=== PATIENT | female | born 1990 | race Caucasian/White ===

== ENCOUNTER → 2016-04-14 | Outpatient (CLI) | payer BC ==
[2016-04-14 18:25] VITALS: BP 119/81
== END ==
LOC: MHUC 17:18
PROVIDERS: ATTEND Physician Assistant Medical
DX: J01.10 Acute frontal sinusitis, unspecified (principal); H10.32 Unspecified acute conjunctivitis, left eye; Z3A.37 37 weeks gestation of pregnancy
CPT/HCPCS: 99213

== ENCOUNTER 2016-06-22 19:39 | Emergency (ER) | payer BC ==
[~2016-06-22] VITALS: Ht 160 cm; Wt 81.5 kg
[~2016-06-22 19:39] MED LIST: AMOX-358 PO; NITR100C3 PO; PLTR10OP OS; PNV1TABL80 PO
--- OUTSIDE RECORDS SUMMARY | 2016-06-22 19:43 | XMS REPORT | Continuity of Care Document ---
Author Author [facility] Organization [facility] Address Unknown Phone Unavailable Support Name Relationship Address Phone ANDREW SANTOYO MD Caregiver [address] [place] [address] [address] [place] [address] Unavailable ANDREW SANTOYO MD Caregiver [address] [place] [address] [place] [address] Unavailable OTRI ABRAHAM Next Of Kin [address] [place] [address] Insurance Providers Guarantor Rober Nevarez Address [address] [place] [address] Email [email or web address] Policy Number [id number] Subscriber's Name Pavel Nevarez Relationship 01 Spouse Group Number [id number] Advance Directives Directive Response Recorded Date/Time Ordered Resuscitation Status Full Code 04/21/16 6:41am Resuscitation Documents on File No 04/21/16 8:01am DPOA for Healthcare Only No 04/21/16 8:01am Living Will No 04/21/16 8:01am Problems No problem information available. Medications Current Home Medications Medication Dose Units Route Directions Days Qty Instructions Start Date Amoxicillin/Potassium Clav (Augmentin 875-125 Tablet) 1 Each Tablet 1 Tab Oral Twice A Day TAKE WITH MEALS 04/21/16 Hydrocodone/Acetaminophen ([place] 5-325 Tablet) 5-325 Tablet 1-2 Tab Oral Every 4 Hours as needed for Pain 20 Tablet 04/24/16 Ibuprofen 800 Mg Tablet 800 Mg Oral Every 8 Hours as needed for Pain 1 Tablet 04/24/16 Pnv95/Ferrous Fumarate/Fa ( Tablet) 1 Each Tablet 1 Tab Oral Daily 04/05/16 Past Home Medications Medication Directions Ordered Status Acetaminophen (Tylenol Extra Strength) 500 Mg Tablet, 1-2 Tab Oral Every 6 Hours as needed for Pain/Fever 04/05/16 Discontinued Docosahexanoic Acid (Dha) 100 Mg Capsule, 04/05/16 Discontinued Folic Acid 0.4 Mg Tablet, 1 Tab Oral Daily 04/21/16 Discontinued Maria Dolores Root 550 Mg Capsule, 04/05/16 Discontinued Social History Social History Problem Response Recorded Date/Time Onset Date Status Reason for Hospitalization 04/24/2016 1:14pm Not Applicable Not Applicable Hx Substance Use No 04/21/2016 8:01am Not Applicable Not Applicable Has the pt used tobacco in the last 12 months No 04/21/2016 8:01am Not Applicable Not Applicable Query Response Start Date Stop Date Smoking Status Never smoker Hospital Discharge Instructions Instructions: Care Instructions: Reason for Hospitalization: I was in the hospital because (patient own words): to have babies Discharge Diet: regular Discharge Activity: per instruction sheet Follow Up Appointments: Call for or Tue appt. Pending Lab / Results: No Pending Lab Patient Instructions: see discharge teaching Wound/Incision Care: per instruction sheet, discussed vacuum Pain Scale Utilized to Educate Patient: 0-10 Pain Scale Pain Management/Treatment: per instruction sheet Expected Signs/Symptoms: per instruction sheet Notify Physician If: per instruction sheet During Business Hours:: Please call the physician's office at [phone] After Business Hours:: Please call [phone] and have the blower operator page the physician. Condition at time of discharge: Good Plan of Care Discharge Date 04/24/16 2:30pm Disposition 01 DISCHARGED HOME, SELF-CARE Instructions/Education Provided [facility] Delivery Prescriptions See Medication Section Care Plan and Goals See Discharge Instructions Section Functional Status Query Response Date Recorded Mobility Status Ambulatory April 24, 2016 1:14pm Assistive Devices None April 24, 2016 1:14pm Activity Limitations None April 24, 2016 1:14pm Feeding Ability Independent April 24, 2016 1:14pm Toileting Ability Independent April 24, 2016 1:14pm Grooming Ability Independent April 24, 2016 1:14pm Dressing Ability Independent April 24, 2016 1:14pm Driving Ability Independent April 24, 2016 1:14pm Housework Ability Independent April 24, 2016 1:14pm Meal Preparation Ability Independent April 24, 2016 1:14pm Stair Climbing Ability Independent April 24, 2016 1:14pm Ability to complete ADL's impeded by No change April 24, 2016 1:14pm Cognitive/Perceptual Impairments None April 24, 2016 1:14pm Preferred Method of Learning Video/TV April 24, 2016 9:59am Allergies, Adverse Reactions, Alerts No known allergies. Immunizations Query Response on File Recorded Date/Time Influenza Vaccine Hx 11/24/15 04/21/16 8:01am Tdap Vaccine Hx 03/08/16 04/21/16 8:01am Vital Signs Acute Vital Signs Vital Response Date/Time Temperature (Fahrenheit) 97.7 deg F (96.8 - 99.1) 04/24/2016 8:10am Temperature (Calculated Celsius) 36.18860 degrees C (36.0 - 37.3) 04/24/2016 8:10am Pulse Rate (adult) 90 bpm (60 - 100) 04/24/2016 8:10am Respiratory Rate 16 breaths/min (10 - 20) 04/24/2016 8:10am O2 Sat by Pulse Oximetry 97 % (90 - 100) 04/23/2016 10:16pm Oxygen Delivery Method Room Air 04/24/2016 8:10am Oxygen Flow Rate 2.00 L/min 04/21/2016 4:19pm Blood Pressure 119/76 mm Hg 04/24/2016 8:10am Blood Pressure Source Automatic Cuff 04/24/2016 8:10am Height (Feet) 5 feet 04/21/2016 8:01am Height (Inches) 3.00 inches 04/21/2016 8:01am Weight (Kilograms) 101.800 kg 04/21/2016 8:01am Height 5 ft 3 in 04/05/2016 2:14pm Weight 224.43 lb 04/21/2016 8:01am Body Mass Index 39.0 kg/m^2 04/21/2016 8:01am Results Laboratory Results Test Name Result Units Flags Reference Collection Date/Time Result Date/ Time Comments White Blood Count 17.6 T/MM3 H 4.5-11.0 04/24/2016 4:43am 04/24/2016 5: 53am Red Blood Count 3.15 M/MM3 L 4.00-5.20 04/24/2016 4:43am 04/24/2016 5: 53am Hemoglobin 9.3 GM/DL L 12-16 04/24/2016 4:43am 04/24/2016 5:53am Hematocrit 27.6 % D L 36-46 04/24/2016 4:43am 04/24/2016 5:53am Mean Corpuscular Volume 87.6 UM3 80-100 04/24/2016 4:43am 04/24/2016 5: 53am Mean Corpuscular Hemoglobin 29.5 UUG 26-34 04/24/2016 4:43am 2016 5:53am Mean Corpuscular Hemoglobin Concent 33.7 GM/DL 31-37 04/24/2016 4:43am 04/24/2016 5:53am RDW Standard Deviation 38.5 FL 36.9-50.2 04/24/2016 4:43am 04/24/2016 5 :53am Platelet Count 197 T/MM3 D 130-400 04/24/2016 4:43am 04/24/2016 5:53am Mean Platelet Volume 11.8 UM3 9.4-12.4 04/24/2016 4:43am 04/24/2016 5: 53am Neutrophils % (Manual) 70.0 % H 33-66 04/22/2016 5:45am 04/22/2016 6: 46am Band Neutrophils % 3.0 % 0-6 04/22/2016 5:45am 04/22/2016 6:46am Lymphocytes % (Manual) 21.0 % L 23-45 04/22/2016 5:45am 04/22/2016 6: 46am Monocytes % (Manual) 4.0 % 0-9.0 04/22/2016 5:45am 04/22/2016 6:46am Basophils % (Manual) 2.0 % 0-2 04/22/2016 5:45am 04/22/2016 6:46am Reactive Lymphocytes % 1.0 % H 0-0 04/21/2016 7:24pm 04/21/2016 7:56pm Band Neutrophils # 0.6 T/MM3 04/22/2016 5:45am 04/22/2016 6:46am Absolute Neutrophils (Manual) 12.9 T/MM3 H 1.8-7.7 04/22/2016 5:45am 6:46am Lymphocytes # (Manual) 3.9 T/MM3 1-4.8 04/22/2016 5:45am 04/22/2016 6: 46am Monocytes # (Manual) 0.7 T/MM3 0-0.8 04/22/2016 5:45am 04/22/2016 6: 46am Basophils # (Manual) 0.4 T/MM3 H 0-0.2 04/22/2016 5:45am 04/22/2016 6: 46am Reactive Lymphocytes # 0.2 T/MM3 H 0-0 04/21/2016 7:24pm 04/21/2016 7: 56pm Red Cell Morphology Comment ABNORMAL 04/22/2016 5:45am 04/22/2016 6 :46am Anisocytosis 1+ 04/22/2016 5:45am 04/22/2016 6:46am Poikilocytosis 1+ 04/22/2016 5:45am 04/22/2016 6:46am Procedures Procedure Status Date Provider(s) Extremity study Completed 01/29/16 section Completed 04/21/16 ANDREW SANTOYO MD Encounters Encounter Location Arrival/Admit Date Discharge/Depart Date Attending Provider Discharged Inpatient [facility] 04/21/16 6:02am 04/24/16 2:30pm ANDREW SANTOYO MD [facility] 01/29/16 2:56pm ANDREW SANTOYO MD
[2016-06-22] MEDS ORDERED: KETOROLAC 60 MG/2 ML (TORADOL) VIAL IM ONE (20:25)
[2016-06-22] MEDS ORDERED: PROMETHAZINE 25 MG/ML (PHENERGAN) 1 ML VIAL IM ONE (20:25)
[2016-06-22] MEDS ORDERED: HYDROmorphone 1 MG/ML (DILAUDID) SYRINGE IM ONE (20:25)
[2016-06-22] MEDS ORDERED: BIRTH CONTROL (20:58)
[2016-06-22] MEDS ORDERED: ONDANSETRON 4 MG (ZOFRAN) ORAL DISSOLVE TAB ONE (21:00)
[2016-06-22] MEDS ORDERED: ED- ONDANSETRON ODT 4 MG (ZOFRAN) 4 TABLETS/BTL PO ONE ×2 (21:00)
[2016-06-22 21:06] VITALS: BP 116/59
--- NOTE | 2016-06-22 21:06 | NUR ---
ALL MEDS WERE GIVEN IM SO NO START/STOP TIME FOR IV
== END 2016-06-22 21:06 | disposition home or self-care (01) ==
LOC: ED 19:41
DX: R10.11 Right upper quadrant pain (principal); R10.12 Left upper quadrant pain; R11.2 Nausea with vomiting, unspecified; R19.7 Diarrhea, unspecified
CPT/HCPCS: 96372; 99283; J1170; J1885; J2550; 99282